=== PATIENT | male | born 1990 | race Caucasian/White ===

== ENCOUNTER 2017-04-01 18:28 | Emergency (ER) | payer OTHER ==
[~2017-04-01] VITALS: Ht 175.3 cm; Wt 77.3 kg
[2017-04-01] MEDS ORDERED: PROZ10 PO (19:09)
[2017-04-01 19:43] LABS: BASOPHILS % (AUTO) 0.2 % (0.0-2.0); EOSINOPHILS % (AUTO) 0 % (1.0-6.0); HEMOGLOBIN 11.2 g/dL (13.5-17.5); LYMPHOCYTES # (AUTO) 0.7 K/uL (1.0-4.8); LYMPHOCYTES % (AUTO) 5.3 % (22.0-44.0); MEAN CORPUSCULAR VOLUME 97 fL (80-100); MONOCYTES % (AUTO) 7.6 % (2.0-9.0); NEUTROPHILS # (AUTO) 11.7 K/uL (1.8-7.7); PLATELET COUNT (AUTO) 258 K/uL (150-450); RED BLOOD CELL COUNT(AUTO) 3.41 MIL/uL (4.50-5.90); RED CELL DISTRIBUTION WIDTH 16.8 % (11.5-14.5)
[2017-04-01 19:44] LABS: NEUTROPHILS % (AUTO) 86.9 % (40.0-70.0)
[2017-04-01 19:55] LABS: ANION GAP 15 mmol/L (8-16); CALCIUM, TOTAL 8.2 mg/dL (8.8-10.5); CARBON DIOXIDE 25 mmol/L (22-29); CHLORIDE 99 mmol/L (98-107); CREATININE 15.53 mg/dL (0.60-1.30); GLOMERULAR FILTR. RATE CALC 4 mL/min (>60); GLUCOSE,RANDOM 113 mg/dL (70-110); POTASSIUM 5.2 mmol/L (3.5-5.1); SODIUM SERUM 139 mmol/L (136-145); UREA NITROGEN, BLOOD 79 mg/dL (7-18)
[2017-04-01 20:07] LABS: ALANINE AMINOTRANSFERASE 25 U/L (12-78); ALBUMIN 4.3 g/dL (3.4-5.0); ALKALINE PHOSPHATASE 164 U/L (46-116); ASPARTATE AMINOTRANSFERASE 16 U/L (15-37); BILIRUBIN,TOTAL 0.5 mg/dL (0.1-1.0); TOTAL PROTEIN, SERUM 7.6 g/dL (6.4-8.2)
[2017-04-01] MEDS ORDERED: ACETAMINOPHEN 500 MG TABLET PO ONE (21:00)
[2017-04-02 00:10] VITALS: BP 134/79
== END 2017-04-02 00:39 | disposition short-term general hospital (02) ==
LOC: EMS 18:31
DX: F32.9 Major depressive disorder, single episode, unspecified (principal); N18.6 End stage renal disease; F41.9 Anxiety disorder, unspecified; Z94.0 Kidney transplant status; Z99.2 Dependence on renal dialysis
CPT/HCPCS: 36415; 80053; 85025; 99285; G0480

== ENCOUNTER 2018-01-23 09:08 | Inpatient (IN) | payer MEDICARE, OTHER ==
[~2018-01-23] VITALS: Ht 172.7 cm; Wt 87.3 kg
[~2018-01-23 09:08] MED LIST: PROZ10 PO
[2018-01-23] MEDS ORDERED: PHOSLOC PO (09:43)
[2018-01-23] MEDS ORDERED: SEVE0.8P6 PO (09:43)
[2018-01-23 10:19] LABS: BASOPHILS % (AUTO) 0.7 % (0.0-2.0); HEMATOCRIT 36.9 % (41-53); HEMOGLOBIN 12.5 g/dL (13.5-17.5); LYMPHOCYTES # (AUTO) 1.2 K/uL (1.0-4.8); LYMPHOCYTES % (AUTO) 14.1 % (22.0-44.0); MEAN CORPUSCULAR HEMOGLOBIN 30.3 pg (26.0-34.0); MEAN CORPUSCULAR HGB CONC 33.8 G/dL (31.0-37.0); MEAN CORPUSCULAR VOLUME 90 fL (80-100); MONOCYTES # (AUTO) 0.5 K/uL (0.1-1.0); NEUTROPHILS # (AUTO) 6.5 K/uL (1.8-7.7); NEUTROPHILS % (AUTO) 78.2 % (40.0-70.0); PLATELET COUNT (AUTO) 218 K/uL (150-450); RED BLOOD CELL COUNT(AUTO) 4.11 MIL/uL (4.50-5.90); RED CELL DISTRIBUTION WIDTH 17.4 % (11.5-14.5)
[2018-01-23 10:30] LABS: CALCIUM, TOTAL 9.2 mg/dL (8.8-10.5); CREATININE 14.39 mg/dL (0.60-1.30)
[2018-01-23 10:35] LABS: POTASSIUM 7.2 mmol/L (3.5-5.1)
[2018-01-23] MEDS ORDERED: INSULIN REGULAR, HUMAN 100 UNITS/ML IVP ONE (10:45)
[2018-01-23] MEDS ORDERED: SODIUM BICARBONATE [ADULT] 8.4% 50 MEQ/50 ML SYRINGE IVP ONE (10:45)
[2018-01-23] MEDS ORDERED: DEXTROSE 50%-WATER 25 GM/50 ML SYRINGE IVP ONE ×2 (10:45→12:45)
[2018-01-23] MEDS ORDERED: SODIUM POLYSTYRENE SULFONATE 15 GM/60 ML SUSPENSION BOTTLE PO ONE (10:45)
[2018-01-23] MEDS ORDERED: ACETAMINOPHEN 325 MG TABLET PO PRN (10:45)
[2018-01-23] MEDS ORDERED: CALCIUM GLUCONATE 100 MG/ML 10 ML IVP ONE (10:45)
[2018-01-23] MEDS ORDERED: BISACODYL 10 MG RECTAL RECTAL SUPPOSITORY PR PRN (10:45)
[2018-01-23 11:09] LABS: GLUCOSE,POINT OF CARE 70 MG/DL (70-110)
[2018-01-23 12:38] VITALS: BP 153/88
[2018-01-23 12:59] LABS: GLUCOMETER DEV NAME(LOC) 5S.2; GLUCOSE,POINT OF CARE 50 MG/DL (70-110)
[2018-01-23 13:15] LABS: GLUCOMETER DEV NAME(LOC) 5S.2; GLUCOSE,POINT OF CARE 201 MG/DL (70-110)
[2018-01-23] MEDS ORDERED: PANTOPRAZOLE SODIUM 40 MG DR TABLET PO SCH (16:00)
[2018-01-23] MEDS ORDERED: DOCUSATE SODIUM 100 MG CAPSULE PO SCH (21:00)
[2018-01-24 10:24] LABS: GLUCOMETER DEV NAME(LOC) 5S.2; GLUCOSE,POINT OF CARE 89 MG/DL (70-110)
== END 2018-01-23 18:55 | disposition left against medical advice (07) | DRG 640 ==
LOC: EMS 09:09 → 5S 12:10
PROVIDERS: ADMIT Internal Medicine; ATTEND Internal Medicine
PROC: 5A1D70Z Performance of Urinary Filtration, Intermittent, Less than 6 Hours Per Day (ICD-10-PCS; principal; 2018-01-23)
DX: E87.5 Hyperkalemia (principal); N18.6 End stage renal disease; Z94.0 Kidney transplant status; F10.129 Alcohol abuse with intoxication, unspecified; F41.9 Anxiety disorder, unspecified; F32.9 Major depressive disorder, single episode, unspecified; Z53.21 Procedure and treatment not carried out due to patient leaving prior to being seen by health care provider; Z91.19 Patient's noncompliance with other medical treatment and regimen; Z99.2 Dependence on renal dialysis
CPT/HCPCS: 84132; 87340; 93005; 96374; 96375; 99291; G0378; G0480; J0610; J1815; J3490